=== PATIENT | female | born 1995 | race Caucasian/White ===

== ENCOUNTER 2017-03-30 02:36 | Emergency (ER) | payer MEDICAID ==
[2017-03-30] MEDS ORDERED: MIDAZOLAM 2 MG/2 ML VIAL ONE ×2 (02:58→03:19)
[2017-03-30 02:59] LABS: % IMMATURE GRANULYOCYTES 0.4 % (0.0-1.1); ABSOLUTE IMMATURE GRANULOCYTES 0.02 10^3/uL (0.00-0.10); ADD DIFF? NO; ADD MORPH? NO; ADD SCAN? NO; ATYPICAL LYMPHOCYTE FLAG 20 (0-99); FRAGMENT RBC FLAG 0 (0-99); HEMATOCRIT 43.8 % (38.0-47.0); HEMOGLOBIN 15.1 g/dL (12.6-16.3); LEFT SHIFT FLG 0 (0-99); LIPEMIA HEMOLYSIS FLAG 90 (0-99); MEAN CELL HEMOGLOBIN 32.1 pg (27.9-34.1); MEAN CELL HEMOGLOBIN CONCENTR. 34.5 g/dL (32.4-36.7); MEAN CELL VOLUME 93.2 fL (81.5-99.8); MEAN PLATELET VOLUME 9.3 fL (8.7-11.7); PLATELET CLUMPS FLAG 20 (0-99); PLATELET COUNT 368 10^3/uL (150-400); RED CELL DISTRIBUTION WIDTH 12.3 % (11.5-15.2)
[2017-03-30] MEDS ORDERED: MIDAZOLAM 10 MG/2 ML VIAL IVP ONE ×2 (03:00→03:24)
[2017-03-30] MEDS ORDERED: NS 1,000 ML IV ONE (03:08)
[2017-03-30 03:12] LABS: ALANINE AMINOTRANSFERASE 34 IU/L (9-52); ALBUMIN 4.6 g/dL (3.5-5.0); ALKALINE PHOSPHATASE 70 IU/L (38-126); ANION GAP 17 mEq/L (8-16); ASPARTATE AMINOTRANSFERASE 22 IU/L (14-46); BILIRUBIN,TOTAL 0.5 mg/dL (0.1-1.4); CALCIUM 9.5 mg/dL (8.5-10.4); CARBON DIOXIDE 20 mEq/l (22-31); CHLORIDE 109 mEq/L (97-110); CREATININE 0.8 mg/dL (0.6-1.0); ETHANOL SERUM 129 mg/dL (0-10); GLOMERULAR FILTRATION RATE > 60; GLUCOSE 89 mg/dL (70-100); POTASSIUM 4.7 mEq/L (3.5-5.2); SALICYLATE < 1.0 mg/dL (2.0-20.0); SODIUM 146 mEq/L (134-144); TOTAL PROTEIN 7.8 g/dL (6.3-8.2)
[2017-03-30 04:19] VITALS: BP 127/85
--- NOTE | 2017-03-30 05:09 | EDPHY ---
H & P Stated Complaint: found unresponsive, convulsive like activity Time Seen by Provider: 03/30/17 02:46 HPI/ROS: HPI The patient presents with altered mental status for the last several hours. She was out drinking with her boyfriend, had about 5-6 drinks of hard alcohol. Afterwards she went to bed. Her boyfriend who has some medical training, noticed that she was not sleeping normally, occasionally exhibiting posturing of her upper extremities and was not responsive. He called 911. On their arrival, she was tachycardic and nonresponsive. She was given IV fluids. EKG showed a narrow complex tachycardia. She is on a TCA. REVIEW OF SYSTEMS Constitutional: No fever, no chills. Eyes: No discharge. ENT: No sore throat. Cardiovascular: No chest pain, no palpitations. Respiratory: No cough, no shortness of breath. Gastrointestinal: No abdominal pain, no vomiting. Genitourinary: No hematuria. Musculoskeletal: No back pain. Skin: No rashes. Neurological: No headache. PMHx: Some sort of congenital heart defect Soc Hx: Alcohol use PHYSICAL General Appearance: Responsive to painful stimuli Eyes: Pupils equal and round no pallor or injection ENT, Mouth: Mucous membranes moist Respiratory: There are no retractions, lungs are clear to auscultation Cardiovascular: Regular rate and rhythm Gastrointestinal: Abdomen is soft and non-tender, no masses, bowel sounds normal Neurological: A&O, moves all extremities Skin: Warm and dry, no rashes Musculoskeletal: Neck is supple non tender Extremities: symmetrical, full range of motion Psychiatric: Patient moves all extremities, occasionally responsive Source: Patient, EMS Exam Limitations: Intoxication - Medical/Surgical History Hx Asthma: No Hx Chronic Respiratory Disease: No Hx Diabetes: No Hx Cardiac Disease: Yes Hx Renal Disease: No Hx Cirrhosis: No Hx Alcoholism: No Hx HIV/AIDS: No Hx Splenectomy or Spleen Trauma: No Other PMH: undersized heart - elevated hr Constitutional: Initial Vital Signs Heart Rate 155 H 03/30/17 02:49 Respiratory Rate 18 03/30/17 02:49 Blood Pressure 120/87 H 03/30/17 02:49 O2 Sat (%) 98 03/30/17 02:49 O2 Delivery Mode Room Air Allergies/Adverse Reactions: No Known Allergies Allergy (Unverified 03/30/17 02:52) Home Medications: Medication Instructions Recorded Nortriptyline HCl 05/11/17 Medical Decision Making - Diagnostics EKG Interpretation: EKG: Complete interpretation has been separately recorded in the [email or web address] archive. Summary impression: Sinus tachycardia ED Course/Re-evaluation: In the emergency room, the patient was monitored for several hours. She was given IV fluids. She remained in a narrow complex tachycardia making TCA overdose unlikely. She metabolized appropriately and was more awake and alert. She has a normal neurologic examination. She may have been suffering from alcohol intoxication. I doubt any other significant ingestion. She will be discharged with her boyfriend. Differential Diagnosis: This is a 21-year-old female, brought in by ambulance for altered mental status after drinking alcohol, exhibiting somewhat bizarre behavior. On arrival, she is occasionally tremulous in all of her extremities and then quite sedate. She is tachycardic. She is not hypotensive. Differential diagnosis includes alcohol intoxication, polysubstance abuse, less likely TCA overdose, less likely meningitis. - Data Points Laboratory Results: Laboratory Results 03/30/17 02:30 03/30/17 02:30 Medications Given: Discontinued Medications Sodium Chloride (Ns) 1,000 mls @ 0 mls/hr IV ONCE ONE PRN Reason: Wide Open Stop: 03/30/17 03:09 Last Admin: 03/30/17 03:00 Dose: 1,000 mls Midazolam HCl (Versed) 2 mg IVP EDNOW ONE Stop: 03/30/17 03:01 Last Admin: 03/30/17 03:01 Dose: 2 mg Midazolam HCl (Versed) 2 mg IVP EDNOW ONE Stop: 03/30/17 03:25 Last Admin: 03/30/17 03:21 Dose: 2 mg Departure - Departure Disposition: Home, Routine, Self-Care Clinical Impression: Alcoholic intoxication, Altered mental status Condition: Good Instructions: Alcohol Intoxication (ED) Additional Instructions: Please take it easy over the next few days. You should return to the emergency room if your worse in any way. I have given you the information for primary care doctor. You can call for appointment. Referrals: [facility] [Outside] - As per Instructions
[2017-03-30 05:10] VITALS: PULSE 87; RESP 18; TEMP 98.2; O2SAT 96
== END 2017-03-30 05:15 | disposition home or self-care (01) ==
DX: R41.82 Altered mental status, unspecified (principal); F10.129 Alcohol abuse with intoxication, unspecified
CPT/HCPCS: 80305; 82947-QW; 96374; G0480; J2250

== ENCOUNTER 2018-10-30 12:21 | Inpatient (IN) | payer MEDICAID ==
[2018-10-30] MEDS ORDERED: NS 1,000 ML IV ONE ×2 (12:38)
[2018-10-30] MEDS ORDERED: ONDANSETRON 4 MG/2 ML VIAL IVP ONE (12:38)
[2018-10-30] MEDS ORDERED: HYDROmorphONE/DILAUDID 2 MG/ML INJ IVP ONE (12:38)
[2018-10-30 12:47] LABS: PLATELET COUNT 276 10^3/uL (150-400)
--- NOTE | 2018-10-30 12:48 | EDPHY ---
H & P Stated Complaint: RLQ pain Time Seen by Provider: 10/30/18 12:33 - Personal History LMP (Females 10-55): 8-14 Days Ago Current Tetanus/Diphtheria Vaccine: Yes Current Tetanus Diphtheria and Acellular Pertussis (TDAP): Yes - Medical/Surgical History Hx Asthma: No Hx Chronic Respiratory Disease: No Hx Diabetes: No Hx Cardiac Disease: Yes Hx Renal Disease: No Hx Cirrhosis: No Hx Alcoholism: No Hx HIV/AIDS: No Hx Splenectomy or Spleen Trauma: No Other PMH: undersized heart - elevated hr - Social History Smoking Status: Never smoked Constitutional: Initial Vital Signs Temperature (C) 36.8 C 10/30/18 12:24 Heart Rate 125 H 10/30/18 12:24 Respiratory Rate 16 10/30/18 12:24 Blood Pressure 117/78 10/30/18 12:24 O2 Sat (%) 96 10/30/18 12:24 O2 Delivery Mode Room Air Allergies/Adverse Reactions: No Known Allergies Allergy (Verified 10/30/18 14:04) Home Medications: Medication Instructions Recorded Nortriptyline HCl [Pamelor 50 mg 50 mg PO HS 03/30/17 (*)] Acetaminophen [Tylenol 325mg (*)] 325 - 650 mg PO DAILY PRN 10/30/18 Medical Decision Making - Diagnostics Imaging Results: Imaging Impressions Abdomen CT 10/30/18 12:39 Impression: 1. Circumferential wall thickening of the ascending and proximal transverse colon consistent with nonspecific infectious/inflammatory colitis versus inflammatory bowel disease. Recommend follow-up colonoscopy. 2. No CT evidence of appendicitis, abscess or bowel obstruction. 3. Mild constipation. Findings and recommendations discussed with Emergency Department physician, Sreekanth Franco MD at 1330 hour, 10/30/2018. Final report concurs with initial preliminary interpretation. Imaging: Discussed imaging studies w/ call center recruiter Radiologist ED Course/Re-evaluation: CHIEF COMPLAINT: Right lower quadrant pain, nausea vomiting HISTORY OF PRESENT ILLNESS: 22-year-old female who developed right lower quadrant pain approximately 24 hr ago. It has worsened considerably all day yesterday and she presented back to her doctor Dr. Lucas hong from [place] who was concerned about appendicitis. He sent her down here for further evaluation. She denies any prior abdominal surgeries. She denies any vaginal discharge. She denies any dysuria. She states that she has had periumbilical pain localizing down her right lower quadrant over the last day and she is nauseated without significant vomiting. But some vomiting. She denies diarrhea. She does have fevers and chills. REVIEW OF SYSTEMS: A comprehensive 10 system review of systems is otherwise negative aside from elements mentioned in the history of present illness and medical decision making. PHYSICAL EXAM: HR, BP, O2 Sat, RR. Temp noted General Appearance: Alert, well hydrated, appropriate, and non-toxic appearing. Head: Atraumatic without scalp tenderness or obvious injury Eyes: Pupils equal, round, reactive to light and accommodation, EOMI, no trauma , no injection. Ears: Clear bilaterally, no perforation, normal landmarks Nose: Atraumatic, no rhinorrhea, clear. Throat: There is no erythema or exudates, no lesions, normal tonsils, mucus membranes moist. Neck: Supple, 2+ carotid upstroke, nontender, no lymphadenopathy. Respiratory: No retractions, no distress, no wheezes, and no accessory muscle use. Lungs are clear to auscultation bilaterally. Cardiovascular: Regular rate and rhythm, no murmurs, rubs, or gallops. Bilateral carotid, radial, dorsalis pedis, and posterior tibial pulses intact. Good capillary refill all extremities. Gastrointestinal: Significant tenderness in the right lower quadrant with positive peritoneal signs, non-distended, no masses. Musculoskeletal: Normal active ROM of all extremities, atraumatic. Neurological: Alert, appropriate, and interactive. The patient has normal DTRs and non-focal cranial nerves, motor, sensory, and cerebellar exam. Skin: No rashes, good turgor, no nodules on palpation. Past medical history: Patient denies Past surgical history: No surgical history including abdominal surgery Family history: Noncontributory Social history: , employed, does not abuse tobacco drugs or alcohol denies DIAGNOSTICS/PROCEDURES/CRITICAL CARE TIME: Study: CT of the abdomen and pelvis with IV contrast Indication: Right lower quadrant tenderness Results: CT scan of the abdomen and pelvis was obtained. The results of the study are ascending and transverse colitis. Negative for appendicitis. The study was read by the radiologist, Dr. Gary. I viewed the images myself on the PACS system. DIFFERENTIAL DIAGNOSIS: The differential diagnosis for the patient's abdominal pain included but was not limited to ovarian cyst, pelvic inflammatory disease, ovarian torsion, urinary tract infection, ectopic , cholecystitis, and appendicitis. MEDICAL DECISION MAKING: This patient has a progressing story of worsening right lower quadrant tenderness nausea and mild vomiting with fevers and chills. She has a very tender right lower quadrant. Laboratory studies and CT scan are pending. I am suspicious of appendicitis versus an ovarian process. Spoke with Dr. Gary, radiologist. No appendicitis. Evidence of ascending and transverse colitis. Plan to admit patient due to severity of symptoms as well as the extensive nature of her colitis. Plan to consult with gastroenterology. 13:44 Spoke with hospitalist service. Dr. Eaton accepts admission for ascending and transverse colitis. 13:[address] Kim, network control operators supervisor. She will consult. Plan for GI pathogen analysis at her request. - Data Points Laboratory Results: Laboratory Results 10/30/18 12:36 10/30/18 12:36 10/30/18 10/30/18 10/30/18 12:52 12:36 12:36 WBC RBC Hgb POC Hgb 14.3 gm/dL gm/dL (12.6-16.3) Hct POC Hct 42 % % (38-47) MCV MCH MCHC RDW Plt Count MPV Neut % (Auto) Lymph % (Auto) [place] % (Auto) Eos % (Auto) Baso % (Auto) Nucleat RBC Rel Count Absolute Neuts (auto) Absolute Lymphs (auto) Absolute Monos (auto) Absolute Eos (auto) Absolute Basos (auto) Absolute Nucleated RBC Immature Gran % Immature Gran # POC Sodium 140 mEq/L mEq/L (135-145) Sodium 136 mEq/L mEq/L (135-145) POC Potassium 3.5 mEq/L mEq/L (3.3-5.0) Potassium 3.9 mEq/L mEq/L (3.5-5.2) POC Chloride 102 mEq/L mEq/L (97-110) Chloride 104 mEq/L mEq/L (97-110) Carbon Dioxide 25 mEq/l mEq/l (22-31) Anion Gap 7 mEq/L mEq/L (6-14) POC BUN 8 mg/dL mg/dL (7-23) BUN 10 mg/dL mg/dL (7-23) Creatinine 0.8 mg/dL mg/dL (0.6-1.0) POC Creatinine 0.8 mg/dL mg/dL (0.6-1.0) Estimated GFR > 60 Glucose 101 mg/dL H mg/dL (70-100) POC Glucose 103 mg/dL H mg/dL (70-100) Calcium 8.8 mg/dL mg/dL (8.5-10.4) Beta HCG, Qual NEGATIVE Urine Color Urine Appearance Urine pH Ur Specific [place] Urine Protein Urine Ketones Urine Blood Urine Nitrate Urine Bilirubin Urine Urobilinogen Ur Leukocyte Esterase Urine RBC Urine WBC Ur Epithelial Cells Urine Bacteria Urine Mucus Urine Glucose 10/30/18 10/30/18 12:36 12:30 WBC 10.41 10^3/uL H 10^3/uL (3.80-9.50) RBC 4.11 10^6/uL L 10^6/uL (4.18-5.33) Hgb 13.3 g/dL g/dL (12.6-16.3) POC Hgb Hct 40.1 % % (38.0-47.0) POC Hct MCV 97.6 fL fL (81.5-99.8) MCH 32.4 pg pg (27.9-34.1) MCHC 33.2 g/dL g/dL (32.4-36.7) RDW 12.8 % % (11.5-15.2) Plt Count 276 10^3/uL 10^3/uL (150-400) MPV 8.8 fL fL (8.7-11.7) Neut % (Auto) 84.0 % H % (39.3-74.2) Lymph % (Auto) 10.7 % L % (15.0-45.0) [place] % (Auto) 4.1 % L % (4.5-13.0) Eos % (Auto) 0.6 % % (0.6-7.6) Baso % (Auto) 0.3 % % (0.3-1.7) Nucleat RBC Rel Count 0.0 % % (0.0-0.2) Absolute Neuts (auto) 8.75 10^3/uL H 10^3/uL (1.70-6.50) Absolute Lymphs (auto) 1.11 10^3/uL 10^3/uL (1.00-3.00) Absolute Monos (auto) 0.43 10^3/uL 10^3/uL (0.30-0.80) Absolute Eos (auto) 0.06 10^3/uL 10^3/uL (0.03-0.40) Absolute Basos (auto) 0.03 10^3/uL 10^3/uL (0.02-0.10) Absolute Nucleated RBC 0.00 10^3/uL 10^3/uL (0-0.01) Immature Gran % 0.3 % % (0.0-1.1) Immature Gran # 0.03 10^3/uL 10^3/uL (0.00-0.10) POC Sodium Sodium POC Potassium Potassium POC Chloride Chloride Carbon Dioxide Anion Gap POC BUN BUN Creatinine POC Creatinine Estimated GFR Glucose POC Glucose Calcium Beta HCG, Qual Urine Color YELLOW Urine Appearance HAZY Urine pH 5.0 (5.0-7.5) Ur Specific [place] 1.025 (1.002-1.030) Urine Protein NEGATIVE (NEGATIVE) Urine Ketones NEGATIVE (NEGATIVE) Urine Blood NEGATIVE (NEGATIVE) Urine Nitrate NEGATIVE (NEGATIVE) Urine Bilirubin NEGATIVE (NEGATIVE) Urine Urobilinogen 2.0 EU H EU (0.2-1.0) Ur Leukocyte Esterase 1+ H (NEGATIVE) Urine RBC 5-10 /hpf H /hpf (0-3) Urine WBC 10-15 /hpf H /hpf (0-3) Ur Epithelial Cells 2+ /lpf H /lpf (NONE-1+) Urine Bacteria 1+ /hpf H /hpf (NONE SEEN) Urine Mucus 2+ /lpf H /lpf (NONE-1+) Urine Glucose NEGATIVE (NEGATIVE) Medications Given: Discontinued Medications Hydromorphone HCl (Dilaudid) 1 mg IVP EDNOW ONE Stop: 10/30/18 12:39 Last Admin: 10/30/18 12:44 Dose: 1 mg Sodium Chloride (Ns) 1,000 mls @ 0 mls/hr IV EDNOW ONE; Wide Open PRN Reason: Protocol Stop: 10/30/18 12:39 Last Admin: 10/30/18 12:43 Dose: 1,000 mls Sodium Chloride (Ns) 1,000 mls @ 0 mls/hr IV EDNOW ONE; Wide Open PRN Reason: Protocol Stop: 10/30/18 12:39 Last Admin: 10/30/18 13:28 Dose: 1,000 mls Cefoxitin Sodium 1 gm/ Sodium (Chloride) 50 mls @ 200 mls/hr IV EDNOW ONE PRN Reason: Protocol Stop: 10/30/18 13:48 Last Admin: 10/30/18 14:01 Dose: 50 mls Ondansetron HCl (Zofran) 4 mg IVP EDNOW ONE Stop: 10/30/18 12:39 Last Admin: 10/30/18 12:43 Dose: 4 mg Promethazine HCl (Phenergan) 12.5 mg IVP ONCE ONE Stop: 10/30/18 13:27 Last Admin: 10/30/18 13:28 Dose: 12.5 mg Point of Care Test Results: Chemistry 10/30/18 12:52 POC Sodium 140 mEq/L mEq/L (135-145) POC Potassium 3.5 mEq/L mEq/L (3.3-5.0) POC Chloride 102 mEq/L mEq/L (97-110) POC BUN 8 mg/dL mg/dL (7-23) POC Creatinine 0.8 mg/dL mg/dL (0.6-1.0) POC Glucose 103 mg/dL H mg/dL (70-100) ISTAT H&H 10/30/18 12:52 POC Hgb 14.3 gm/dL gm/dL (12.6-16.3) POC Hct 42 % % (38-47) Departure - Departure Disposition: [facility] Inpatient Acute Clinical Impression: Colitis Condition: Fair Report Scribed for: Sreekanth Franco Report Scribed by: Vianey Eid Date of Report: 10/30/18 Time of Report: 14:01
[2018-10-30] MEDS ORDERED: IOPAMIDOL (ISOVUE-300) 100 ML BTL ONE (13:04)
[2018-10-30] MEDS ORDERED: PROMETHAZINE HCL 25 MG/ML INJ IVP ONE (13:26)
[2018-10-30] MEDS ORDERED: cefOXitin SODIUM 1 GM in NS 50 ML IV ONE (13:34)
--- NOTE | 2018-10-30 14:12 | PDGENHP ---
Addendum entered and electronically signed by Mercy Lugo NP 10/30/18 15:35 : Utilizes Nortriptyline for migraines. She may resume this medication. Original Note: History and Physical - Chief Complaint RLQ pain, nausea and vomiting - History of Present Illness 22 y/o female presents with 2 days worth of abdominal pain, nausea, vomiting and diarrhea. Her and her boyfriend got back from a week long vacation at [facility] on Monday. Yesterday at 2:00am, she woke up with abdominal pain located to the RLQ. She was nauseous and actively vomiting and diarrhea until 7:00am. No hematemesis or hematochezia. She went to see her PCP, Dr. Lucas Herrera in [place], who gave her Toradol and Phenergan, which she says helped alleviate her nausea and pain. Unfortunately, she reports the effects wore off by midnight yesterday, she continued to experience RLQ pain and nausea, but no diarrhea or vomiting. She has not had a bowel movement since yesterday. Denies dysuria. She f/u'ed with Dr. Herrera this morning who sent her to ER to r /o appendicitis. Abdominal CT w/contrast: circumferential wall thickening of the ascending and proximal tranverse colon consistent with nonspecific infectious/inflammatory colitis versus inflammatory bowel disease. No CT evidence of appendicitis, abscess or bowel obstruction. Mild constipation. We are admitting the pt for observation colitis. Past Medical/Surgical History 1. Congenital heart defect - undersized therefore increased heart rate Social 1. Lives by [place] [address] with her boyfriend 2. Denies tobacco or illicit drug use. Rarely drinks alcohol 3. Works in a daycare; volunteers as a ward supervisor/container coordinator Vital Signs 117/78 125 HR 96% RA 36.8c History Information - Allergies/Home Medication List Allergies/Adverse Reactions: No Known Allergies Allergy (Verified 10/30/18 14:04) Home Medications: Nortriptyline HCl [Pamelor 50 mg (*)] 50 mg PO HS 03/30/17 [Last Taken 10/29/18] Acetaminophen [Tylenol 325mg (*)] 325 - 650 mg PO DAILY PRN 10/30/18 [Last Taken 10/30/18 00:00] I have personally reviewed and updated: family history, medical history, social history, surgical history Past Medical History: See HPI list - Surgical History Additional surgical history: See HPI list - Family History Positive for: non-pertinent - Social History Smoking Status: Never smoked Alcohol Use: Rarely Drug Use: None Review of Systems Review of Systems: ROS: 10pt was reviewed & negative except for what was stated in HPI & below Constitutional: Reports: malaise EENMT: Reports: no symptoms Cardiac: Reports: no symptoms Respiratory: Reports: no symptoms Gastrointestinal: Reports: vomitting, abdominal pain, diarrhea, nausea Genitourinary: Reports: no symptoms Muscolosketal: Reports: no symptoms Skin: Reports: no symptoms Neurological: Reports: headache (Chronic migraines) Hematologic/Lymphatic: Reports: no symptoms Immunologic/Allergy: Reports: no symptoms Physical Exam Physical Exam: Lab data and imaging were reviewed WBC: 10.41 UA: unremarkable Ab CT: See HPI list Temp Pulse Resp BP Pulse Ox 36.8 C 105 H 18 109/75 95 10/30/18 14:00 10/30/18 14:00 10/30/18 14:00 10/30/18 14:00 10/30/18 14:00 Constitutional: uncomfortable, other (pleasant, cooperative. Noticeably uncomfortable, guarding abdominal region) Eyes: PERRL, anicteric sclera, EOMI Ears, Nose, Mouth, Throat: moist mucous membranes, hearing normal, ears appear normal, no oral mucosal ulcers Cardiovascular: regular rate and rhythym, no murmur, rub, or gallop, tachycardia Peripheral Pulses: 2+: dorsalis-pedis (R) (Radial 2+), dorsalis-pedis (L) ( Radial 2+) Respiratory: no respiratory distress, no rales or rhonchi, clear to auscultation Gastrointestinal: no palpable masses, tenderness, guarding, other (Hypoactive bowel sounds; tenderness through abdomen, more so RLQ, no rovsings) Genitourinary: no bladder fullness, no bladder tenderness Skin: warm, normal color, no rashes or abrasions, no fluctuance, no induration, No mottled Musculoskeletal: full muscle strength, no muscle tenderness, normal joint ROM, no joint effusions Neurologic: AAOx3, sensation intact bilaterally, CN II-XII Intact Psychiatric: interacting appropriately, not anxious, not encephalopathic, thought process linear Lymph, Heme, Immunologic: no cervical LAD, no supraclavicular LAD Lab Data & Imaging Review 10/30/18 12:36 10/30/18 12:36 WBC 10.41 10^3/uL (3.80-9.50) H 10/30/18 12:36 RBC 4.11 10^6/uL (4.18-5.33) L 10/30/18 12:36 Hgb 13.3 g/dL (12.6-16.3) 10/30/18 12:36 POC Hgb 14.3 gm/dL (12.6-16.3) 10/30/18 12:52 Hct 40.1 % (38.0-47.0) 10/30/18 12:36 POC Hct 42 % (38-47) 10/30/18 12:52 MCV 97.6 fL (81.5-99.8) 10/30/18 12:36 MCH 32.4 pg (27.9-34.1) 10/30/18 12:36 MCHC 33.2 g/dL (32.4-36.7) 10/30/18 12:36 RDW 12.8 % (11.5-15.2) 10/30/18 12:36 Plt Count 276 10^3/uL (150-400) 10/30/18 12:36 MPV 8.8 fL (8.7-11.7) 10/30/18 12:36 Neut % (Auto) 84.0 % (39.3-74.2) H 10/30/18 12:36 Lymph % (Auto) 10.7 % (15.0-45.0) L 10/30/18 12:36 [place] % (Auto) 4.1 % (4.5-13.0) L 10/30/18 12:36 Eos % (Auto) 0.6 % (0.6-7.6) 10/30/18 12:36 Baso % (Auto) 0.3 % (0.3-1.7) 10/30/18 12:36 Nucleat RBC Rel Count 0.0 % (0.0-0.2) 10/30/18 12:36 Absolute Neuts (auto) 8.75 10^3/uL (1.70-6.50) H 10/30/18 12:36 Absolute Lymphs (auto) 1.11 10^3/uL (1.00-3.00) 10/30/18 12:36 Absolute Monos (auto) 0.43 10^3/uL (0.30-0.80) 10/30/18 12:36 Absolute Eos (auto) 0.06 10^3/uL (0.03-0.40) 10/30/18 12:36 Absolute Basos (auto) 0.03 10^3/uL (0.02-0.10) 10/30/18 12:36 Absolute Nucleated RBC 0.00 10^3/uL (0-0.01) 10/30/18 12:36 Immature Gran % 0.3 % (0.0-1.1) 10/30/18 12:36 Immature Gran # 0.03 10^3/uL (0.00-0.10) 10/30/18 12:36 POC Sodium 140 mEq/L (135-145) 10/30/18 12:52 Sodium 136 mEq/L (135-145) 10/30/18 12:36 POC Potassium 3.5 mEq/L (3.3-5.0) 10/30/18 12:52 Potassium 3.9 mEq/L (3.5-5.2) 10/30/18 12:36 POC Chloride 102 mEq/L (97-110) 10/30/18 12:52 Chloride 104 mEq/L (97-110) 10/30/18 12:36 Carbon Dioxide 25 mEq/l (22-31) 10/30/18 12:36 Anion Gap 7 mEq/L (6-14) 10/30/18 12:36 POC BUN 8 mg/dL (7-23) 10/30/18 12:52 BUN 10 mg/dL (7-23) 10/30/18 12:36 Creatinine 0.8 mg/dL (0.6-1.0) 10/30/18 12:36 POC Creatinine 0.8 mg/dL (0.6-1.0) 10/30/18 12:52 Estimated GFR > 60 10/30/18 12:36 Glucose 101 mg/dL (70-100) H 10/30/18 12:36 POC Glucose 103 mg/dL (70-100) H 10/30/18 12:52 Calcium 8.8 mg/dL (8.5-10.4) 10/30/18 12:36 Beta HCG, Qual NEGATIVE 10/30/18 12:36 Urine Color YELLOW 10/30/18 12:30 Urine Appearance HAZY 10/30/18 12:30 Urine pH 5.0 (5.0-7.5) 10/30/18 12:30 Ur Specific [place] 1.025 (1.002-1.030) 10/30/18 12:30 Urine Protein NEGATIVE (NEGATIVE) 10/30/18 12:30 Urine Ketones NEGATIVE (NEGATIVE) 10/30/18 12:30 Urine Blood NEGATIVE (NEGATIVE) 10/30/18 12:30 Urine Nitrate NEGATIVE (NEGATIVE) 10/30/18 12:30 Urine Bilirubin NEGATIVE (NEGATIVE) 10/30/18 12:30 Urine Urobilinogen 2.0 EU (0.2-1.0) H 10/30/18 12:30 Ur Leukocyte Esterase 1+ (NEGATIVE) H 10/30/18 12:30 Urine RBC 5-10 /hpf (0-3) H 10/30/18 12:30 Urine WBC 10-15 /hpf (0-3) H 10/30/18 12:30 Ur Epithelial Cells 2+ /lpf (NONE-1+) H 10/30/18 12:30 Urine Bacteria 1+ /hpf (NONE SEEN) H 10/30/18 12:30 Urine Mucus 2+ /lpf (NONE-1+) H 10/30/18 12:30 Urine Glucose NEGATIVE (NEGATIVE) 10/30/18 12:30 Assessment & Plan Plan: 1. Acute Colitis: inflammatory bowel disease versus gastroenteritis -GI panel pending -GI consulted and aware: Dr. Kim on case -CBC/CMP tomorrow -NPO status for bowel rest -IVF -If IBD, will most likely need colonoscopy 2. Congenital heart defect -I suspect part of her tachycardia is from hypovolemia but also part of the heart defect she speaks of. She reports her elevated heart rate has increased and has been meaning to "get it checked out." We will perform an echo and continuous tele monitoring 3. Nausea, abdominal pain -Anti-emetics PRN -Pain PO/IVP PRN Diet: NPO VTE ppx: SCDs Code: Full Dispo: Admit to obs
[2018-10-30] MEDS: HYDROmorphONE/DILAUDID 1 MG/ML INJ IVP PRN (17:35)
[2018-10-30] MEDS: ONDANSETRON DISINTEGRATING 4 MG TAB PO PRN (19:43)
[2018-10-30] MEDS: NORTRIPTYLINE HCL 50 MG CAP PO SCH (21:02)
[2018-10-31] MEDS: NS 1,000 ML IV SCH ×2 (02:47→21:36)
[2018-10-31] MEDS: ONDANSETRON DISINTEGRATING 4 MG TAB PO PRN ×2 (02:48→15:28)
[2018-10-31] MEDS: HYDROmorphONE/DILAUDID 1 MG/ML INJ IVP PRN ×2 (02:54→10:04)
[2018-10-31 05:58] LABS: PLATELET COUNT 205 10^3/uL (150-400)
[2018-10-31] MEDS: ONDANSETRON 4 MG/2 ML VIAL IVP PRN (10:05)
--- NOTE | 2018-10-31 10:39 | PDCONSULT ---
Band Shover Note: GI Chart reviewed Infectious cause most likely Rec check GI path panel if negative then will consult for possible colon
--- NOTE | 2018-10-31 14:39 | ASMTCMCOM ---
CM Note CM Note Notes: Chart reviewed. 22 year old female admitted via ED for c/o abdominal pain. GI consulted. Likely infection versus colitis. No needs identified at this time. CM available should needs arise. Plan: Likely to dc to home without needs when medically cleared. Date Signed: 10/31/2018 02:39 PM Electronically Signed By:Giuliana Hill RN
--- NOTE | 2018-10-31 15:43 | HOSPPROG ---
Hospitalist Progress Note Assessment/Plan: * Colitis -infectious vs. IBD -no GI PCR panel as hasn't had stool -continue IV dilaudid -d/w Dr. Kim - start empiric antibiotics -colonoscopy only if GI PCR negative and fails to improve as she suspects infectious * Congenital heart defect -ECHO pending * Tachycardia - improved -suspect element of dehydration -per patient chronic tachycardia due to heart problem * Anemia - follow Subjective: No better, in between IV dilaudid doses she is back to where she started. No stool but she also hasn't eaten. Objective: Vital Signs Temp Pulse Resp BP Pulse Ox 36.7 C 101 H 18 105/64 95 10/31/18 11:49 10/31/18 11:49 10/31/18 11:49 10/31/18 11:49 10/31/18 11:49 - Physical Exam Constitutional: no apparent distress, appears nourished, not in pain Cardiovascular: regular rate and rhythym, no murmur, rub, or gallop Respiratory: no respiratory distress, no rales or rhonchi, clear to auscultation Gastrointestinal: soft, non-tender abdomen, tenderness, No guarding, No rebound , No distension Skin: no rashes or abrasions, no fluctuance, no induration Neurologic: AAOx3, sensation intact bilaterally Psychiatric: interacting appropriately, not anxious, not encephalopathic, thought process linear ICD10 Worksheet Patient Problems: Problems Problem Status Onset Colitis Acute
--- NOTE | 2018-10-31 16:01 | PDMN ---
Medical Necessity Medical necessity: Pt meets IP criteria as of 10/31/2018 per and [facility] Mg-GAS ( gastroenterology); los > 2 mn for ongoing tx and management of acute colitis (r/ o gastroenteritis vs IBD)in a pt with hx of congenital heart defect; requiring IVF, IV anti-emetics, IV pain control, GI consultation and clear liquid diet.
--- NOTE | 2018-10-31 17:36 | ECHO ---
[email or web address] [address] [address] Main: [phone] Fax: Transthoracic Echocardiogram Name: VANITA BRITTON MR#: [id number] Study Date: 10/30/2018 Study Time: 03:35 PM Date of : 1995 Age: 22 year(s) Height: 160 cm (63 in.) Weight: 73.03 kg (161 lb.) BSA: 1.76 m2 Gender: Female Examination: Echo Indication: congenital heart defect - "undersized" heart therefore causes the tachycardia Image Quality: Adequate Contrast: Requested by: Mercy Lugo BP: 91 mmHg/67 mmHg Heart Rate: Rhythm: Indication: congenital heart defect - "undersized" heart therefore causes the tachycardia Procedure Staff Youth Services Specialist: Teresa Fontaine RD Reading Physician: Bennett Doyle MD Requesting Provider: Conclusions: Normal size left ventricle. No LV hypertrophy. Normal global systolic LV function. EF is 54 %. Normal diastolic LV function. Mildly dilated right ventricle. Normal RV function. The left atrium is normal in size. The right atrium is normal in size. Mild to moderate tricuspid valve regurgitation. The pulmonary artery pressure is moderately increased. Right ventricular systolic pressure measures 52mmHg. Normal size ascending aorta measuring 2.4 cm. The IVC is normal sized. Measurements: Chambers Valvular Assessment AV/MV Valvular Assessment TV/PV Normal Normal Normal Name Value Range Name Value Range Name Value Range Ao Margaret (2D): 2.5 cm (1.4 cm-2.6 AV Vmax: 1.32 m/s (1 m/s-1.7 TR Vmax: 3.41 mm/s ( - ) cm) m/s) TR PGmax: 47 mmHg ( - ) IVSd (2D): 0.8 cm (0.6 cm-1.1 AV maxP mmHg ( - ) syst. PAP: 52 mmHg ( - ) cm) AV meanP mmHg ( - ) PV Vmax: 0.83 m/s (0.6 m/s-0.9 LVDd (2D): 4.3 cm (3.9 cm-5.3 ANTHONY (VTI): 2.0 cm ( - ) m/s) cm) MV E Vmax: 0.84 m/s ( - ) PV PGmax: 3 mmHg ( - ) LVDs (2D): 2.8 cm (2.1 cm-4 MV A Vmax: 0.84 m/s ( - ) cm) MV E/A: 1.00 ( - ) LVPWd (2D): 0.9 cm ( - ) MV PHT: 0.064 s ( - ) LVOTd 2.0 cm 2.0 cm mm MVA (PHT): 3.4 s ( - ) Patient: VANITA BRITTON Study Date: 10/30/2018 Page 1 of 2 03:35 PM LVEF (BP): 54 % (>=55 %) RVDd(2D): 2.8 cm (1.9 cm-3.8 cmmm) Continued Measurements: Chambers Valvular Assessment AV/MV Valvular Assessment TV/PV Name Value Name Value Name Value LADs: 3.1 cm MV DecTime: 229 m/s CVP (est.): 5 mmHg LADs Lon.9 cm MV E/E' Lateral: 5.70 LA Area: 13.0 cm2 LA Volume: 28 ml LA Volume Index: 15.9 ml/m2 RA Area: 13.2 cm2 Additional Vessels Name Value Ao Ascendin.4 cm Inferior Vena Cava: 1.8 cm Findings: Left Ventricle: Normal size left ventricle. No LV hypertrophy. Normal global systolic LV function. EF is 54 %. Normal diastolic LV function. Right Ventricle: Mildly dilated right ventricle. Normal RV function. Left Atrium: The left atrium is normal in size. Right Atrium: The right atrium is normal in size. Mitral Valve: The mitral valve is normal in appearance and function. No mitral stenosis is present. Trivial mitral valve regurgitation. Aortic Valve: The aortic valve is tri-leaflet. There is no significant aortic valve regurgitation. No aortic valve stenosis is present. Tricuspid Valve: The tricuspid valve is normal in appearance and function. Mild to moderate tricuspid valve regurgitation. The pulmonary artery pressure is moderately increased. Right ventricular systolic pressure measures 52mmHg. Pulmonic Valve: The pulmonic valve is normal in appearance and function. Mild pulmonic valve regurgitation is noted. Aorta: The aorta is normal. Normal size aortic root measuring 2.5 cm. Normal size ascending aorta measuring 2.4 cm. IVC: The IVC is normal sized. Pericardium: No pericardial effusion. No pleural effusion. (No Signature Object) Patient: VANITA BRITTON Study Date: 10/30/2018 Page 2 of 2 03:35 PM [id number]
[2018-10-31] MEDS: NORTRIPTYLINE HCL 50 MG CAP PO SCH (21:36)
[2018-10-31] MEDS ORDERED: LACTULOSE 20 GM/30 ML UDCUP PO PRN (22:18)
[2018-10-31] MEDS ORDERED: BISACODYL 10 MG SUPP PR PRN (22:18)
[2018-10-31] MEDS ORDERED: MAGNESIUM HYDROXIDE 30 ML UDCUP PO PRN (22:18)
[2018-10-31] MEDS ORDERED: POLYETHYLENE GLYCOL 3350 17 GM PKT PO PRN (22:18)
[2018-10-31] MEDS: SENNOSIDES/DOCUSATE SODIUM TAB PO SCH (22:45)
[2018-11-01 05:42] LABS: PLATELET COUNT 228 10^3/uL (150-400)
[2018-11-01] MEDS: NS 1,000 ML IV SCH ×2 (05:55→19:28)
[2018-11-01] MEDS: HYDROmorphONE/DILAUDID 1 MG/ML INJ IVP PRN (08:30)
[2018-11-01] MEDS: SENNOSIDES/DOCUSATE SODIUM TAB PO SCH ×2 (08:31→21:39)
[2018-11-01] MEDS: ONDANSETRON 4 MG/2 ML VIAL IVP PRN ×2 (08:34→21:39)
--- NOTE | 2018-11-01 16:00 | GCON ---
DATE OF CONSULTATION: 11/01/2018 REFERRING PHYSICIAN: Maureen Eaton MD CHIEF COMPLAINT: Abdominal pain. HISTORY OF PRESENT ILLNESS: I am asked to see this patient consultation by Dr. Eaton for chief complaint of abdominal pain. Patient is a 22-year-old, previously healthy and 3 days ago developed acute onset of abdominal pain associated with nausea, vomiting, and diarrhea. She presented to the emergency room. CT scan showed acute inflammation of the right colon. She has had no prior history of colitis. No prior history of diarrhea. No blood in her stools. No melena. Has had some nausea on and off for maybe a month. She states that she is not . Her last menstrual period was 2 weeks ago. There is no known family history for colitis. She has not recently started or stop smoking. Stool study was requested; however, patient has had no bowel movement since admission. She was treated empirically for infectious colitis, and yesterday, her pain was much improved, although now having some more pain this morning. Still no diarrhea. ALLERGIES: No known drug allergies. MEDICINES ON ADMISSION: Acetaminophen and nortriptyline. PAST MEDICAL HISTORY: She has a congenital heart defect and does have baseline higher heart rate. SOCIAL HISTORY: Denies tobacco use. FAMILY HISTORY: Negative for colitis. Negative for colon cancer or colon polyps. REVIEW OF SYSTEMS: I performed a complete review of systems, which is negative , except for the pertinent positives and negatives noted above in the HPI. PHYSICAL EXAM: VITAL SIGNS: She is afebrile. BP is 106/69, pulse 95. CONSTITUTIONAL: She is alert and oriented. HEENT: Eyes: No scleral icterus. ENT: No oral lesions. CARDIOVASCULAR: Regular rhythm. CHEST: Clear to auscultation. ABDOMEN: Soft. Positive bowel sounds. Some tenderness to palpation in the right lower quadrant, as well as left lower quadrant, but no rebound. Eustachian nonfocal. SKIN: No rashes. LABORATORY/IMAGING: White count on admission was 10, is now 6, H and H today is [address] scan of the abdomen. She has circumferential wall thickening of the ascending and proximal transverse colon. No evidence of appendicitis. No abscess or bowel obstruction. Mild constipation. ASSESSMENT: Patient with acute onset of abdominal pain with diarrhea, nausea, and vomiting, also elevated white count, and potentially elevated temperature. This is most consistent with infectious colitis. Unfortunately patient has not been able to provide stool sample for GI path testing. Differential diagnosis could include inflammatory bowel disease, although her presentation is not consistent with that. Overall, it does appear that she is getting better with empiric treatment for infectious colitis, although still having pain, so today we discussed possibility of doing a colonoscopy. We did discuss that often in the early setting, it could still be difficult to assess the difference between an acute infectious process versus acute onset of inflammatory bowel disease by biopsy. The patient has elected to try another day of empiric therapy. If she is not improving, then we can consider colonoscopy, potentially upper endoscopy as well given her nausea. /[id number]/MODL MTDD
--- NOTE | 2018-11-01 16:42 | HOSPPROG ---
Hospitalist Progress Note Assessment/Plan: * Colitis -infectious vs. IBD -no GI PCR panel as hasn't had stool -continue IV dilaudid -d/w Dr. Kim - start empiric antibiotics -colonoscopy only GI PCR negative and fails to improve as suspects infectious -possible colonoscopy in 1-2 days * Congenital heart defect -ECHO relatively unremarkable except pulm HTN - RVSP 52mmHg * Tachycardia - improved -suspect element of dehydration -per patient chronic tachycardia due to heart problem * Anemia - follow Subjective: A little better last night, then back to severe pain and nausea this am Objective: Vital Signs Temp Pulse Resp BP Pulse Ox 36.8 C 98 16 111/73 100 11/01/18 15:43 11/01/18 15:43 11/01/18 15:43 11/01/18 15:43 11/01/18 15:43 Laboratory Results 11/01/18 04:24 10/31/18 11/01/18 11/02/18 05:59 05:59 05:59 Intake Total 3082 Balance 3082 - Physical Exam Constitutional: no apparent distress, appears nourished, not in pain Cardiovascular: regular rate and rhythym, no murmur, rub, or gallop Respiratory: no respiratory distress, no rales or rhonchi, clear to auscultation Gastrointestinal: normoactive bowel sounds, no palpable masses, tenderness (RLQ) , No guarding, No rebound, No distension Skin: no rashes or abrasions, no fluctuance, no induration Neurologic: AAOx3, sensation intact bilaterally Psychiatric: interacting appropriately, not anxious, not encephalopathic, thought process linear ICD10 Worksheet Patient Problems: Problems Problem Status Onset Colitis Acute
[2018-11-01] MEDS: NORTRIPTYLINE HCL 50 MG CAP PO SCH (21:39)
[2018-11-02] MEDS: HYDROmorphONE/DILAUDID 1 MG/ML INJ IVP PRN ×3 (00:06→22:58)
[2018-11-02] MEDS ORDERED: MECLIZINE HCL 25 MG TAB PO PRN (01:28)
[2018-11-02] MEDS: NS 1,000 ML IV SCH ×2 (04:45→19:54)
[2018-11-02 08:21] LABS: PLATELET COUNT 242 10^3/uL (150-400)
[2018-11-02] MEDS ORDERED: SCOPOLAMINE HYDROBROMIDE 1 MG/3 DAYS PATCH TD SCH (09:15)
--- NOTE | 2018-11-02 09:23 | HOSPPROG ---
Hospitalist Progress Note Assessment/Plan: 22yo generally healthy F here with abdominal pain, loose stools, n/v found to have colonic thickening on CT. 1. Acute abdominal pain: Suspect related to infectious colitis, not c/w IBD. Appendix ok. - Given persistence of symptoms, obtain pelvic US to eval ovaries - Check lipase, TSH - GI PCR panel ordered but hasn't had stool - Empiric abx started, will continue - GI following, considering endoscopy (lower +/- upper) if not improving - Cont IV dilaudid PRN for severe pain 2. Nausea: Not controlled - Stop zofran, trial scopolamine patch and phenergan PRN 3. Pulmonary hypertension: RVSP 52 on TTE. Reports h/o congenital heart defect but echo relatively unremarkable. - Slow down fluids, monitor volume status 4. Tachycardia: Improved, likely dehydration, ? heart problem. 5. Anemia: Low end of normal on admit, now lower which is likely dilutional. Follow VTE ppx: ambulation Dispo: Remain inpatient for now, risk for dehydration until tolerating PO Subjective: Terrible night, stabbing pain requiring IV dilaudid. No BM. Constant nausea. Hasn't eaten anything. No fevers Objective: Vital Signs Temp Pulse Resp BP Pulse Ox 36.7 C 94 18 97/65 L 97 11/02/18 08:00 11/02/18 08:00 11/02/18 08:00 11/02/18 08:00 11/02/18 08:00 Laboratory Results 11/02/18 08:11 11/02/18 08:11 11/01/18 11/02/18 11/03/18 05:59 05:59 05:59 Intake Total 3082 850 Balance 3082 850 - Physical Exam Constitutional: no apparent distress, appears nourished, not in pain Eyes: PERRL, anicteric sclera, EOMI Ears, Nose, Mouth, Throat: hearing normal, ears appear normal, no oral mucosal ulcers, dry mucous membranes Cardiovascular: regular rate and rhythym, no murmur, rub, or gallop, No edema Respiratory: no respiratory distress, no rales or rhonchi, clear to auscultation Gastrointestinal: normoactive bowel sounds, no palpable masses, tenderness ( lower), No guarding Genitourinary: no bladder fullness, no bladder tenderness, no renal bruits Skin: no rashes or abrasions, no fluctuance, no induration Musculoskeletal: full muscle strength, no muscle tenderness, normal joint ROM Neurologic: AAOx3, sensation intact bilaterally Psychiatric: interacting appropriately, not anxious, not encephalopathic, thought process linear ICD10 Worksheet Patient Problems: Problems Problem Status Onset Colitis Acute
--- NOTE | 2018-11-02 09:35 | SOAPPROG ---
SOAP Progress Note Assessment/Plan: Assessment: Abd pain Colitis on CT can Diarrhea now resolved. Suspect infectious colitis but given continued significant pain despite treatment offered colonoscopy and EGD for nausea and patient would like to proceed. Plan: Await pelvic U/S If no clear cause for pain seen on U/S then recommend pore today for EGD and colon in AM Dr. Amanda to assume service this evening. 11/02/18 09:32 Subjective: CC abd paoin Pt having more pain Objective: Vital Signs Temp Pulse Resp BP Pulse Ox 36.7 C 94 18 97/65 L 97 11/02/18 08:00 11/02/18 08:00 11/02/18 08:00 11/02/18 08:00 11/02/18 08:00 Laboratory Results 11/02/18 08:11 11/02/18 08:11 11/01/18 11/02/18 11/03/18 05:59 05:59 05:59 Intake Total 3082 850 Balance 3082 850 Physical Exam - Physical Exam General Appearance: alert Respiratory: lungs clear Cardiac/Chest: regular rate, rhythm Abdomen: soft (tender RLQ) ICD10 Worksheet Patient Problems: Problems Problem Status Onset Colitis Acute
[2018-11-02] MEDS ORDERED: PEG 3350/NA SULF,BICARB,CL/KCL (GAVILYTE-G) 4000 ML BTL PO ONE ×2 (09:36→18:15)
[2018-11-02] MEDS: SENNOSIDES/DOCUSATE SODIUM TAB PO SCH ×2 (10:02→19:50)
[2018-11-02] MEDS: PROMETHAZINE HCL 25 MG/ML INJ IVP PRN ×3 (10:32→22:57)
[2018-11-02] MEDS ORDERED: PNEUMOCOCCAL 0.5ML VACCINE VIAL (PNEUMOVAX 23) IM ONE (11:03)
[2018-11-02] MEDS: MECLIZINE HCL 25 MG TAB PO PRN ×2 (13:09→19:51)
--- NOTE | 2018-11-02 13:28 | ASMTCMCOM ---
CM Note CM Note Notes: Pt continues to require treatment. No CM needs identified. CM will follow for changes. D/C Plan: Independent. Date Signed: 11/02/2018 01:27 PM Electronically Signed By:Cinthia Ramesh
[2018-11-02] MEDS ORDERED: MAGNESIUM CITRATE 300 ML BOTTLE PO ONE (14:15)
[2018-11-02] MEDS ORDERED: MAGNESIUM CITRATE 300 ML BOTTLE PO PRN (18:00)
[2018-11-02] MEDS: NORTRIPTYLINE HCL 50 MG CAP PO SCH (19:51)
[2018-11-03] MEDS: NS 1,000 ML IV SCH (04:43)
[2018-11-03] MEDS ORDERED: MAGNESIUM CITRATE 300 ML BOTTLE PO ONE (05:00)
[2018-11-03] MEDS: PROMETHAZINE HCL 25 MG/ML INJ IVP PRN ×2 (05:05→13:40)
[2018-11-03] MEDS ORDERED: PEG 3350/NA SULF,BICARB,CL/KCL (GAVILYTE-G) 4000 ML BTL PO ONE (06:00)
[2018-11-03] MEDS ORDERED: LIDOCAINE 2% 5 ML SDV ONE (09:27)
[2018-11-03] MEDS ORDERED: PROPOFOL/EMULSION 500 MG/50 ML BOTTLE IV ONE (09:27)
[2018-11-03] MEDS ORDERED: LR 1,000 ML IV ONE (09:33)
[2018-11-03] MEDS ORDERED: NALOXONE HCL 0.4 MG/ML INJ IVP PRN (09:38)
[2018-11-03] MEDS ORDERED: fentaNYL 100 MCG/2 ML INJ IVP PRN (09:38)
--- NOTE | 2018-11-03 09:48 | PDANEPAE ---
ANE Past Medical History - Cardiovascular History Hx Hypertension: No Hx Chest Pain: No Hx Coronary Artery / Peripheral Vascular Disease: No - Pulmonary History Hx COPD: No Hx Oxygen in Use at Home: No Hx Sleep Apnea: No Sleep Apnea Screening Result - Last Documented: Negative - Endocrine History Hx Diabetes: No - Renal History Hx Renal Disorders: No - Liver History Hx Hepatic Disorders: No - Neurological & Psychiatric Hx Hx Neurological and Psychiatric Disorders: No - GI History Hx Gastrointestinal Disorders: Yes Gastrointestinal History Comment: Abdominla Pain New onset - Chronic Pain History Chronic Pain: No ANE Review of Systems Review of Systems: ANE Patient History - Allergies Allergies/Adverse Reactions: No Known Allergies Allergy (Verified 10/30/18 14:04) - Home Medications Home Medications: Nortriptyline HCl [Pamelor 50 mg (*)] 50 mg PO HS 03/30/17 [Last Taken 10/29/18] Acetaminophen [Tylenol 325mg (*)] 325 - 650 mg PO DAILY PRN 10/30/18 [Last Taken 10/30/18 00:00] - NPO status NPO Since - Liquids (Date): 11/03/18 NPO Since - Liquids (Time): 08:00 NPO Since - Solids (Date): 11/03/18 NPO Since - Solids (Time): 00:00 - Smoking Hx Smoking Status: Never smoked - Alcohol Use Alcohol Use: Rarely ANE Labs/Vital Signs - Labs Result Diagrams: 11/02/18 08:11 11/02/18 08:11 - Vital Signs Blood Pressure: 113/82 Heart Rate: 102 Respiratory Rate: 16 O2 Sat (%): 97 Height: 160.02 cm Weight: 73.4 kg ANE Physical Exam - Airway Neck exam: FROM Mallampati Score: Class 1 Mouth exam: normal dental/mouth exam - Pulmonary Pulmonary: no respiratory distress, no rales or rhonchi, clear to auscultation - Cardiovascular Cardiovascular: regular rate and rhythym, no murmur, rub, or gallop - ASA Status ASA Status: II ANE Anesthesia Plan Anesthesia Plan: GA with mask
[2018-11-03] MEDS: SENNOSIDES/DOCUSATE SODIUM TAB PO SCH ×2 (10:13→20:42)
--- NOTE | 2018-11-03 10:33 | SOAPPROG ---
SOAP Progress Note Assessment/Plan: Assessment: 1. Infectious diarrhea 2. Campylobacter enteritis and colitis 3. Generalized abdominal pain Plan: 1. Cancel EGD/Colonoscopy today with dx from stool cx. 2. clears and adat 3. Change Abx coverage to better Campylobacter Rx (azithromycin 1gm orally followed by 500mg po daily for 3 days). 4. IVF 5. Treat nausea and pain symptomatically 6. [address] of abdomen if increasing pain. 7. Will follow 11/03/18 10:22 Subjective: CC: Diarrhea with bowel prep Still with nausea Ongoing abdominal pain. Objective: Vital Signs Temp Pulse Resp BP Pulse Ox 36.9 C 102 H 16 113/82 H 97 11/03/18 09:34 11/03/18 09:48 11/03/18 09:48 11/03/18 09:48 11/03/18 09:48 Microbiology 11/02/18 11:12 Gastrointestinal Tract Panel (PCR) - Final Stool Campylobacter Species Laboratory Results 11/02/18 08:11 11/02/18 08:11 11/02/18 11/03/18 11/04/18 05:59 05:59 05:59 Intake Total 850 3540 Output Total 1300 Balance 850 2240 Physical Exam - Physical Exam General Appearance: no apparent distress EENT: normal ENT inspection Neck: supple Respiratory: lungs clear Cardiac/Chest: regular rate, rhythm Abdomen: other (Generalized TTP but worse in RUQ and RLQ. Bowel sounds present and intermittent. Mild distention.) ICD10 Worksheet Patient Problems: Problems Problem Status Onset Colitis Acute
[2018-11-03] MEDS ORDERED: PROMETHAZINE HCL 25 MG TAB PO PRN (10:53)
[2018-11-03] MEDS: AZITHROMYCIN IV 500 MG in NS 250 ML IV SCH (12:06)
[2018-11-03] MEDS: ONDANSETRON DISINTEGRATING 4 MG TAB PO PRN ×2 (13:30→20:41)
[2018-11-03] MEDS ORDERED: AZITHROMYCIN IV 500 MG in NS 250 ML IV SCH (16:00)
--- NOTE | 2018-11-03 16:01 | HOSPPROG ---
Hospitalist Progress Note Assessment/Plan: 22yo generally healthy F here with abdominal pain, loose stools, n/v found to have colonic thickening on CT. 1. Acute abdominal pain: GI PCR + campylobacter. - Stop metronidazole and levofloxacin (some resistance to this) - Start azithromycin 500mg IV, plan to continue until symptoms better - Hold on endoscopic evaluation - Cont IV dilaudid PRN for severe pain, try to use PO meds as able 2. Nausea: Intermittent. - Scopolamine patch and phenergan IV and PO PRN 3. Pulmonary hypertension: RVSP 52 on TTE. Reports h/o congenital heart defect but echo relatively unremarkable. - Slow down fluids, monitor volume status 4. Tachycardia: Improved, likely dehydration, ? heart problem. 5. Anemia: Low end of normal on admit, now lower which is likely dilutional. Follow VTE ppx: ambulation Dispo: Remain inpatient for now, risk for dehydration until tolerating PO and pain controlled. Hopefully dc tomorrow Subjective: Lots of abdominal pain last night, couldn't sleep. This has migrated to epigastric area. Also nausea, no emesis. Stooling with bowel prep. Objective: Vital Signs Temp Pulse Resp BP Pulse Ox 36.9 C 102 H 16 113/82 H 97 11/03/18 09:34 11/03/18 09:48 11/03/18 09:48 11/03/18 09:48 11/03/18 09:48 Microbiology 11/02/18 11:12 Gastrointestinal Tract Panel (PCR) - Final Stool Campylobacter Species Laboratory Results 11/02/18 08:11 11/02/18 08:11 11/02/18 11/03/18 11/04/18 05:59 05:59 05:59 Intake Total 850 3540 Output Total 1300 Balance 850 2240 - Physical Exam Constitutional: no apparent distress, appears nourished, uncomfortable Eyes: PERRL, anicteric sclera, EOMI Ears, Nose, Mouth, Throat: moist mucous membranes, hearing normal, ears appear normal, no oral mucosal ulcers Cardiovascular: regular rate and rhythym, no murmur, rub, or gallop, No edema Respiratory: no respiratory distress, no rales or rhonchi, clear to auscultation Gastrointestinal: normoactive bowel sounds, soft, non-tender abdomen, tenderness , No guarding Genitourinary: no bladder fullness, no bladder tenderness, no renal bruits Skin: no rashes or abrasions, no fluctuance, no induration Musculoskeletal: full muscle strength, no muscle tenderness, normal joint ROM Neurologic: AAOx3, sensation intact bilaterally Psychiatric: interacting appropriately, not anxious, not encephalopathic, thought process linear ICD10 Worksheet Patient Problems: Problems Problem Status Onset Colitis Acute
[2018-11-03] MEDS: MECLIZINE HCL 25 MG TAB PO PRN (16:21)
[2018-11-03] MEDS: NORTRIPTYLINE HCL 50 MG CAP PO SCH (20:42)
[2018-11-04 08:22] VITALS: BP 108/71
[2018-11-04] MEDS: AZITHROMYCIN IV 500 MG in NS 250 ML IV SCH (08:31)
[2018-11-04] MEDS: ONDANSETRON DISINTEGRATING 4 MG TAB PO PRN ×2 (08:31→14:37)
[2018-11-04] MEDS: MECLIZINE HCL 25 MG TAB PO PRN (08:31)
[2018-11-04] MEDS: ACETAMINOPHEN 325 MG TAB PO PRN ×2 (08:31→14:13)
[2018-11-04] MEDS: SENNOSIDES/DOCUSATE SODIUM TAB PO SCH (08:32)
[2018-11-04] MEDS ORDERED: AZITHROMYCIN IV 500 MG in NS 250 ML IV SCH (09:00)
[2018-11-04] MEDS ORDERED: oxyCODONE IR 5 MG TAB PO PRN (09:30)
--- NOTE | 2018-11-04 10:23 | SOAPPROG ---
SOAP Progress Note Assessment/Plan: Assessment: 1. Infectious diarrhea 2. Campylobacter enteritis and colitis 3. Generalized abdominal pain Plan: 1. ADAT 2. Stop lactulose, senna and MOM 3. Continue azithromycin for 3 days 4. Hopefully home tomorrow if feeling better 5. Stop IVF now tolerating po 6. Check AM lytes and magnesium 11/04/18 10:18 11/04/18 10:24 Subjective: CC: diarrhea today Less abdominal pain Nausea improved but ongoing. Objective: Vital Signs Temp Pulse Resp BP Pulse Ox 36.6 C 115 H 16 108/71 99 11/04/18 08:21 11/04/18 08:21 11/04/18 08:21 11/04/18 08:21 11/04/18 08:21 Laboratory Results 11/02/18 08:11 11/02/18 08:11 11/03/18 11/04/18 11/05/18 05:59 05:59 05:59 Intake Total 3540 1300 Output Total 1300 Balance 2240 1300 Physical Exam - Physical Exam General Appearance: WD/WN, no apparent distress EENT: normal ENT inspection Neck: supple Respiratory: chest non-tender, lungs clear, normal breath sounds Cardiac/Chest: regular rate, rhythm Abdomen: normal bowel sounds, other (Diffuse TTP.), No distended, No guarding, No rebound Skin: normal color, warm/dry Extremities: No swelling Neuro/Psych: normal mood/affect, oriented x 3 ICD10 Worksheet Patient Problems: Problems Problem Status Onset Colitis Acute
--- NOTE | 2018-11-04 12:08 | PDDCSUM ---
Discharge Summary Discharge Summary: Date of Admission: 10/30/2018 Date of Discharge: 11/04/2018 Consultants: gastroenterology Studies: 1. CT abdomen 2. TTE Discharge Diagnoses: 1. Campylobacter colitis 2. Acute abdominal pain 3. Pulmonary hypertension with ? congenital heart defect 4. Sinus tachycardia 5. Anemia Brief Hospital Course: 22yo generally healthy F here with abdominal pain, loose stools, n/v found to have colonic thickening on CT. GI PCR + for campylobacter. She was empirically started on levofloxacin and metronidazole and transitioned to azithromycin when PCR returned. She only tolerated 2 doses of azithromycin (developed some nausea associated with it) however her symptoms were markedly improving so did not feel that completing a course would be indicated. Additionally, campylobacter typically resolves without antibiotics so I did not sent her with a prescription of azithromycin. She was tolerating PO at discharge. An echocardiogram was obtained because she reported a history of a congenital heart defect. The echo was relatively unremarkable except for an elevated RVSP in the 50s. Medications: Please refer to EMR for complete list. Prescription sent for phenergan to her pharmacy. Follow Up Plan: 1. Follow up with PCP in 1-2 weeks to ensure GI sxs resolving 2. Recommend referral to deburrer for evaluation of congenital heart disease Physical Exam: Vitals reviewed, afebrile. Alert and oriented, RRR without m/r/g , lungs clear, abdomen mildly tender but soft, no rashes or edema.
[2018-11-05] MEDS ORDERED: AZITHROMYCIN IV 500 MG in D5W 250 ML IV SCH (09:00)
[2018-11-05] MEDS ORDERED: PATCH REMOVAL 1 EA PATCH TD SCH (09:15)
--- NOTE | 2018-11-05 14:21 | ASMTCMCOM ---
CM Note CM Note Notes: CM met with patientNeela states she has contacted her mom to pick her up and will discharge independently. Patient to follow up as recommended. CM offered info on [facility], patient declines info at this time. CM available to support if any additional Case Management/Discharge needs arise. Date Signed: 11/04/2018 01:52 PM Electronically Signed By:Nina Bermudez
== END 2018-11-04 15:16 | disposition home or self-care (01) | DRG 248 ==
LOC: F1N 15:00 → OBSVTOIN 10-31 14:30
PROVIDERS: ADMIT Internal Medicine; ATTEND Internal Medicine
DX: A04.5 Campylobacter enteritis (principal); R00.0 Tachycardia, unspecified; I27.20 Pulmonary hypertension, unspecified; D64.9 Anemia, unspecified; Q24.9 Congenital malformation of heart, unspecified; G43.909 Migraine, unspecified, not intractable, without status migrainosus; Z23 Encounter for immunization
CPT/HCPCS: 82435-PO; 82565-PO; 82947-PO; 84132-PO; 84295-PO; 84520-PO; 85014-PO; 96374; G0008; G0009; G0378; J0456; J0694; J1170; J1956; J2405; J2550; J2704; Q9967